=== PATIENT | female | born 1955 | race Caucasian/White ===

== ENCOUNTER → 2021-03-21 | Outpatient (CLI) | payer MEDICARE ==
--- NOTE | 2021-03-21 14:03 | XR ---
EXAMINATION TYPE: XR shoulder complete LT DATE OF EXAM: 03/21/2021 COMPARISON: None HISTORY: Fall in May, unable to completely remove are TECHNIQUE: 3 view left shoulder FINDINGS: Humeral head articulates with the glenoid. There is an old fracture of the neck of the [place] orin some rotation of the humeral head in relation to the humeral neck. Glenohumeral joint space narrowing. Acromioclavicular junction appears normal. IMPRESSION: 1. Old fracture left humeral neck
== END | disposition home or self-care (01) ==
LOC: RADXRWHC 13:21
PROVIDERS: ATTEND Family Medicine
DX: M25.812 Other specified joint disorders, left shoulder (principal)

== ENCOUNTER → 2022-01-01 | Outpatient (CLI) | payer MEDICARE ==
--- NOTE | 2022-01-01 10:30 | XR ---
EXAMINATION TYPE: XR lumbosacral spine min 4V DATE OF EXAM: 01/01/2022 CLINICAL HISTORY: Low back pain down both legs. TECHNIQUE: Frontal, lateral, and oblique images of the lumbar spine are obtained. COMPARISON: None FINDINGS: There are 5 lumbar type vertebral bodies identified. There is dextroconvex scoliosis cente red at L2-L3 level. There is grade 1 retrolisthesis L5 on S1. Moderate to severe disc space narrowing at L5-S1 level with moderate narrowing. [id number]-[id number] disc space narrowing and spurring L2-L3 l evel with slight grade 1 retrolisthesis L2 on L3. Moderate to severe disc space narrowing and spurrin g L1-L2 level. Endplate sclerosis L2-L3 level. Oblique images appear within normal limits. Some overl melody mild vascular calcifications and phleboliths are thought present. IMPRESSION: As above.
== END | disposition home or self-care (01) ==
LOC: RADXRMAIN 09:45
PROVIDERS: ATTEND Family Medicine
DX: M41.86 Other forms of scoliosis, lumbar region (principal); M51.37 Other intervertebral disc degeneration, lumbosacral region
CPT/HCPCS: 72110